=== PATIENT | female | born 1985 ===

== ENCOUNTER 2018-01-09 19:30 | Emergency (ER) | payer OTHER ==
[~2018-01-09] VITALS: Ht 162.6 cm; Wt 83.9 kg
[~2018-01-09 19:30] MED LIST: BIRTH CONTROL; CARI350 PO; HYDACE5 PO; IBUP600 PO; IBUP800 PO; Percocet 5-3251 EACH PO; Veetids 500500 MG PO; Verotin-Gr Cap1 EACH PO; Zofran Odt8 MG SL
[2018-01-09 22:02] LABS: Influenza A Positive (NEGATIVE); Influenza B Negative (NEGATIVE)
[2018-01-09] MEDS ORDERED: Pseudoephedrine30 MG PO (22:31)
[2018-01-09] MEDS ORDERED: Mucinex600 MG PO (22:31)
[2018-01-09] MEDS ORDERED: Tamiflu75 MG PO (22:31)
[2018-01-09] MEDS ORDERED: BENZ100A PO (22:31)
== END 2018-01-09 22:48 | disposition home or self-care (01) ==
LOC: ER 19:30
PROVIDERS: Physician Assistant
DX: J10.1 Influenza due to other identified influenza virus with other respiratory manifestations (principal); Z88.5 Allergy status to narcotic agent
CPT/HCPCS: 87804; 96372; 99284; J1885; Q0163

== ENCOUNTER 2019-07-31 08:32 | Emergency (ER) | payer OTHER ==
[~2019-07-31] VITALS: Ht 162.6 cm; Wt 92.1 kg
[~2019-07-31 08:32] MED LIST changes: +BENZ100A PO; +Mucinex600 MG PO; +Pseudoephedrine30 MG PO; +Tamiflu75 MG PO
[2019-07-31] MEDS ORDERED: Amoxicillin500 MG PO (09:39)
[2019-07-31] MEDS ORDERED: NAPR550 PO (09:39)
== END 2019-07-31 10:26 | disposition home or self-care (01) ==
LOC: ER 08:32
DX: K04.7 Periapical abscess without sinus (principal); K12.0 Recurrent oral aphthae; Z88.5 Allergy status to narcotic agent; Z91.040 Latex allergy status; G43.909 Migraine, unspecified, not intractable, without status migrainosus
CPT/HCPCS: 99283

== ENCOUNTER → 2020-08-08 | Outpatient (CLI) | payer OTHER ==
[~2020-08-08] MED LIST changes: +Amoxicillin500 MG PO; +NAPR550 PO
[2020-08-08 10:58] LABS: BASOPHILS PERCENT AUTO 1 % (0-2); EOSINOPHILS ABSOLUTE AUTO 0.18 K/mm3 (0.00-0.68); EOSINOPHILS PERCENT AUTO 2 % (0-6); Hematocrit 44.9 % (33.0-51.0); Hemoglobin 14.4 g/dL (11.5-16.0); IMMATURE GRAN ABSOLUTE AUTO 0.02 K/mm3 (0.00-0.10); IMMATURE GRAN PERCENT AUTO 0 % (0-1); LYMPHOCYTES PERCENT AUTO 27 % (21-46); MONOCYTES ABSOLUTE AUTO 0.62 K/mm3 (0.16-1.47); MONOCYTES PERCENT AUTO 7 % (4-13); Mean Corpuscular HGB 27.8 pg (26.0-34.0); Mean Corpuscular HGB Conc 32.1 g/dL (31.5-36.5); Mean Corpuscular Volume 87 fL (80-100); Mean Platelet Volume 10.7 fL (9.1-12.4); NEUTROPHILS ABSOLUTE AUTO 5.45 K/mm3 (1.96-9.15); NEUTROPHILS PERCENT AUTO 63 % (41-73); Platelet Count 347 K/mm3 (150-400); RDW Coefficient Variation 13.4 % (11.7-14.2); RDW Standard Deviation 41.4 fL (35.1-46.3); Red Blood Cell Count 5.18 M/mm3 (3.80-5.20); White Blood Cell Count 8.67 K/mm3 (4.00-11.30)
[2020-08-08 11:50] LABS: Alanine Aminotransfer (ALT/SGP 49 U/L (12-78); Albumin, Blood 3.4 g/dL (3.4-5.0); Albumin/Globulin Ratio 0.9 (0.8-1.8); Alk Phos 72 U/L (50-136); Anion Gap 5 mmol/L (6-16); Aspartate Aminotrans (AST/SGOT 20 U/L (12-37); Bilirubin, Total 0.6 mg/dL (0.1-1.0); Blood Urea Nitrogen 8 mg/dL (8-24); Bun/Creatinine Ratio 14.2 (12.0-20.0); CHOL/HDL RATIO 3.5; CO2, Blood 25 mmol/L (21-32); Calcium, Blood 8.9 mg/dL (8.5-10.1); Chloride, Blood 107 mmol/L (98-108); Cholesterol 151 mg/dL (50-200); Creatinine, Blood 0.57 mg/dL (0.40-1.00); Globulin, Blood 3.9 g/dL (2.2-4.0); Glomerular Filtration Rate >60 (60-); Glucose, Blood 93 mg/dL (70-99); HDL Cholesterol 43 mg/dL (>39); LDL/HDL RATIO 1.8; Low Density Lipoprotein Chol 76 mg/dL (0-110); Sodium, Blood 137 mmol/L (136-145); Total Protein, Blood 7.3 g/dL (6.4-8.2); Triglycerides 160 mg/dL (30-140); Very Low Density Lipoprot Chol 32 mg/dL (6-28)
== END | disposition home or self-care (01) ==
LOC: LAB SHORT 09:46 → LAB 09:46
PROVIDERS: Nurse Practitioner Family
DX: Z00.00 Encounter for general adult medical examination without abnormal findings (principal)
CPT/HCPCS: 80053; 80061; 84443; 85025

== ENCOUNTER → 2020-11-04 | Outpatient (CLI) | payer OTHER | END | disposition home or self-care (01) | LOC: LAB 19:01 | DX: E03.9 Hypothyroidism, unspecified (principal) | CPT/HCPCS: 84443 ==

== ENCOUNTER → 2021-07-11 | Outpatient (CLI) | payer OTHER ==
[2021-07-13 15:21] LABS: CORONAVIRUS (COVID19) CSH-NRL Negative (Negative)
== END ==
LOC: LAB SHORT 17:08 → LAB 17:08
PROVIDERS: Physician Assistant Medical
DX: Z20.822 Contact with and (suspected) exposure to COVID-19 (principal); Z88.5 Allergy status to narcotic agent; Z91.040 Latex allergy status
CPT/HCPCS: U0003